=== PATIENT | male | born 1980 | race Caucasian/White ===

== ENCOUNTER 2016-10-11 22:42 | Emergency (ER) | payer SELFPAY ==
--- NOTE | 2016-10-11 23:11 | ED.PDOC ---
History of Present Illness - General Chief Complaint: Eye Problems Stated Complaint: wasp sting right lid Time Seen by Provider: 10/11/16 23:05 Source: patient Exam Limitations: no limitations - History of Present Illness Initial Comments: Christiano Engle 36 y/o male stated that wasp stung him right eyelid while he was loading a boat on hi trailer hitch.No SOB no chest pains vision blurry due to lid swelling. Timing/Duration: other - 3 hours ago Severity: mild Location: face - eyelid right Improving Factors: cold therapy Worsening Factors: nothing Associated Symptoms: denies symptoms Allergies/Adverse Reactions: Allergies NO KNOWN ALLERGY Allergy (Verified 08/29/14 18:58) Home Medications: Ambulatory Orders Sulfa/Trimeth 800/160 (Ds) Tab [Bactrim DS Tab] 1 ea PO BID #14 tab 08/29/14 Tramadol HCl 50 mg PO Q6HRS PRN #12 tab 08/29/14 Acetaminophen W/ Codeine [Tylenol W/ CODEINE #3] 1 ea PO Q6H #30 02/20/15 Docusate Sodium [Colace Cap] 100 mg PO BID #30 cap 02/20/15 predniSONE 10 mg PO BID #10 tab 10/11/16 Review of Systems - Review of Systems Constitutional: States: no symptoms reported EENTM: States: see HPI Respiratory: States: no symptoms reported Cardiology: States: no symptoms reported Gastrointestinal/Abdominal: States: no symptoms reported Genitourinary: States: no symptoms reported Musculoskeletal: States: no symptoms reported Skin: States: no symptoms reported Neurological: States: no symptoms reported Endocrine: States: no symptoms reported Hematologic/Lymphatic: States: no symptoms reported Past Medical History (General) - Patient Medical History Hx Stroke: No Hx Congestive Heart Failure: No Hx Diabetes: No Hx MRSA: No - Vaccination History Hx Influenza Vaccination: No Hx Pneumococcal Vaccination: No - Social History Hx Tobacco Use: Yes Family Medical History - Family History Father Family History: No Known Living Status: Still Living Physical Exam - Physical Exam General Appearance: Alert, Frail Eyes, Ears, Nose, Throat Exam: PERRL/EOMI, normal ENT inspection, TMs normal, pharynx normal, other - upper and lower lid swelling able to open right eye eyeball normal Neck: non-tender, full range of motion, supple Cardiovascular/Chest: normal peripheral pulses, regular rate, rhythm, no murmur Respiratory: chest non-tender, lungs clear Gastrointestinal/Abdominal: normal bowel sounds, non tender, soft Back Exam: normal inspection Extremity: normal range of motion, non-tender, no calf tenderness Neurologic: no motor/sensory deficits, alert, oriented x 3 Skin Exam: warm/dry, normal color Skin Problem Location: other - eyelid right Skin Character: erythema, swelling Lymphatic: no adenopathy Departure - Departure Clinical Impression: Swelling of right eyelid Wasp sting Qualifiers: Encounter type: initial encounter Injury intent: accidental or unintentional Qualified Code(s): T63.461A - Toxic effect of venom of wasps, accidental ( unintentional), initial encounter Time of Disposition: 23:25 Disposition: Discharge to Home or Self Care Condition: Good Instructions: DI for Insect Bites and Stings, Insect Bites and Stings ( Alternative Therapy), How to Care for an Insect Bite or Sting Prescriptions: predniSONE 10 mg PO BID #10 tab Home Medications: Ambulatory Orders Sulfa/Trimeth 800/160 (Ds) Tab [Bactrim DS Tab] 1 ea PO BID #14 tab 08/29/14 Tramadol HCl 50 mg PO Q6HRS PRN #12 tab 08/29/14 Acetaminophen W/ Codeine [Tylenol W/ CODEINE #3] 1 ea PO Q6H #30 02/20/15 Docusate Sodium [Colace Cap] 100 mg PO BID #30 cap 02/20/15 predniSONE 10 mg PO BID #10 tab 10/11/16
[2016-10-11] MEDS ORDERED: predniSONE 10 MG TAB PO ONE (23:23)
[2016-10-11 23:39] VITALS: BP 124/73; TEMP 97.4; O2SAT 97
== END 2016-10-11 23:56 | disposition home or self-care (01) ==
LOC: ER 22:42
DX: T63.441A Toxic effect of venom of bees, accidental (unintentional), initial encounter (principal); Y92.9 Unspecified place or not applicable; Z79.899 Other long term (current) drug therapy; Z87.891 Personal history of nicotine dependence

== ENCOUNTER 2017-05-26 14:05 | Emergency (ER) | payer BC ==
--- NOTE | 2017-05-26 15:03 | ED.PDOC ---
History of Present Illness - General Stated Complaint: FEVER HEAD ACHE BODYACHE COUGH Time Seen by Provider: 05/26/17 15:01 Source: patient, family Additional Information: 37 YEAR OLD HEALTHY MALE BROUGHT HERE BY FAMILY FOR EVALUATION OF FEVER BODY ACHE HE WAS OUT IN THE COLD WORKING ON HIS TRUCK FOR 3 HOURS YESTERDAY - History of Present Illness Timing/Duration: 24 hours Severity: mild Improving Factors: nothing Worsening Factors: nothing Associated Symptoms: denies symptoms Allergies/Adverse Reactions: Allergies NO KNOWN ALLERGY Allergy (Verified 08/29/14 18:58) Home Medications: Ambulatory Orders Amoxicillin [Amoxil] 500 mg PO Q8HR #30 cap 05/26/17 Review of Systems - Review of Systems Constitutional: States: see HPI EENTM: States: no symptoms reported Respiratory: States: no symptoms reported Cardiology: States: no symptoms reported Gastrointestinal/Abdominal: States: no symptoms reported Genitourinary: States: no symptoms reported Musculoskeletal: States: no symptoms reported Skin: States: no symptoms reported Neurological: States: no symptoms reported Endocrine: States: no symptoms reported Hematologic/Lymphatic: States: no symptoms reported Past Medical History (General) - Patient Medical History Hx Stroke: No Hx Cardiac Disorders: No Hx Congestive Heart Failure: No Hx Hypertension: No Hx Diabetes: No Hx Cancer: No Hx Hepatitis C: No Hx MRSA: No - Vaccination History Hx Tetanus, Diphtheria Vaccination: No Hx Influenza Vaccination: No Hx Pneumococcal Vaccination: No - Social History Hx Tobacco Use: Yes Hx Chewing Tobacco Use: No Hx Alcohol Use: Yes Hx Substance Use: No Hx Substance Use Treatment: No Hx Depression: No Hx Physical Abuse: No Hx Emotional Abuse: No Hx Suspected Abuse: No Family Medical History - Family History Father Family History: No Known Living Status: Still Living Physical Exam - Physical Exam General Appearance: Alert, Comfortable Eye Exam: bilateral normal Ears, Nose, Throat: hearing grossly normal, normal ENT inspection, normal pharynx Neck: non-tender, full range of motion, supple Respiratory: chest non-tender, lungs clear, normal breath sounds, no respiratory distress Cardiovascular/Chest: normal peripheral pulses, regular rate, rhythm, no edema, no gallop, no JVD Peripheral Pulses: radial,right: 2+, radial,left: 2+, femoral,right: 2+, femoral ,left: 2+ Gastrointestinal/Abdominal: normal bowel sounds, non tender, soft, no organomegaly Back Exam: normal inspection, no CVA tenderness Neurologic: corrections corporal II-XII nml as tested, no motor/sensory deficits, alert, normal mood/affect Departure - Departure Clinical Impression: Acute pharyngitis Time of Disposition: 16:36 Disposition: Discharge to Home or Self Care Condition: Good Diet: resume usual diet Prescriptions: Amoxicillin [Amoxil] 500 mg PO Q8HR #30 cap Home Medications: Ambulatory Orders Amoxicillin [Amoxil] 500 mg PO Q8HR #30 cap 05/26/17
[2017-05-26 15:16] VITALS: BP 126/62; O2SAT 96
[2017-05-26] MEDS: AMPICILLIN & SULBACTAM SODIUM 1.5 GM VIAL IM ONE (16:44)
[2017-05-26] MEDS: PENICILLIN BENZATHINE 1.2 MU 1.2 MU/2 ML SYG IM ONE (16:52)
[2017-05-26 17:14] VITALS: TEMP 98.9
== END 2017-05-26 17:15 | disposition home or self-care (01) ==
LOC: ER 14:05
DX: J02.9 Acute pharyngitis, unspecified (principal)
CPT/HCPCS: 87804; 87880; J0561

== ENCOUNTER 2017-05-30 00:02 | Emergency (ER) | payer BC ==
--- NOTE | 2017-05-30 00:38 | ED.PDOC ---
History of Present Illness - General Chief Complaint: Cardiovascular Problem Stated Complaint: chest pain Time Seen by Provider: 05/30/17 00:32 Source: patient Exam Limitations: no limitations Additional Information: PT C/O PRIMARILY SOB ASSOCIATED WITH SOB AND OCC CP. - History of Present Illness Timing/Duration: other - PT HAS HAD LONG STANDING SX'S BUT WERE MUCH MORE FREQUENT TONIGHT Severity: moderate Improving Factors: nothing Worsening Factors: nothing Allergies/Adverse Reactions: Allergies NO KNOWN ALLERGY Allergy (Verified 05/30/17 00:54) Home Medications: Ambulatory Orders Amoxicillin [Amoxil] 500 mg PO Q8HR #30 cap 05/26/17 Review of Systems - Review of Systems Constitutional: Denies: chills, fever EENTM: States: no symptoms reported Respiratory: States: short of breath. Denies: cough, wheezing Cardiology: States: chest pain, palpitations, other - PT C/O BRIEF INTERMITTENT CP WHICH WAS SHARP AND ASSOCIATED WITH PALPITATIONS. Gastrointestinal/Abdominal: Denies: abdominal pain, nausea, vomiting Genitourinary: States: no symptoms reported Musculoskeletal: States: no symptoms reported Skin: States: no symptoms reported Neurological: Denies: weakness Endocrine: States: no symptoms reported Hematologic/Lymphatic: States: no symptoms reported Past Medical History (General) - Patient Medical History Hx Stroke: No Hx Cardiac Disorders: No Hx Congestive Heart Failure: No Hx Hypertension: No Hx Diabetes: No Hx Cancer: No Hx Hepatitis C: No Hx MRSA: No - Vaccination History Hx Tetanus, Diphtheria Vaccination: No Hx Influenza Vaccination: No Hx Pneumococcal Vaccination: No - Social History Hx Tobacco Use: Yes Hx Chewing Tobacco Use: No Hx Alcohol Use: Yes Hx Substance Use: No Hx Substance Use Treatment: No Hx Depression: No Hx Physical Abuse: No Hx Emotional Abuse: No Hx Suspected Abuse: No Family Medical History - Family History Father Family History: No Known Living Status: Still Living Hx Cardiac Disease: No Physical Exam - Physical Exam General Appearance: Alert, Anxious, No apparent distress Eye Exam: bilateral normal Ears, Nose, Throat: hearing grossly normal, normal ENT inspection, other - POOR DENTITION Neck: non-tender, full range of motion, supple Respiratory: lungs clear, normal breath sounds Cardiovascular/Chest: regular rate, rhythm, no murmur Gastrointestinal/Abdominal: normal bowel sounds, non tender, soft, no organomegaly Back Exam: normal inspection, no CVA tenderness Extremity: normal range of motion, non-tender, no calf tenderness Neurologic: alert, normal mood/affect Skin Exam: normal color, warm/dry Lymphatic: no adenopathy Progress - Progress Progress: 05/30/17 01:51 NO FURTHER SX'S VSS - EKG/XRAY/CT EKG: Sinus - RATE 85, NL AXIS, NL INTERVALS, , no ST T wave changes - NAIP, Unchanged from - 07/15/2013 XRAY: chest - VLAD Departure - Departure Clinical Impression: Intermittent palpitations Time of Disposition: 01:53 Disposition: Discharge to Home or Self Care Condition: Good Departure Forms: ED Discharge - Pt. Copy, Patient Portal Self Enrollment Instructions: DI for Chest Pain, DI for Palpitations Referrals: Yamil Lopez MD [Primary Care Provider] - 1-2 Weeks Home Medications: Ambulatory Orders Amoxicillin [Amoxil] 500 mg PO Q8HR #30 cap 05/26/17
--- NOTE | 2017-05-30 00:49 | RAD ---
EXAM: Two view chest. INDICATION: Chest pain. COMPARISON: Chest x-ray: 07/15/2013. FINDINGS: Cardiac silhouette: Unremarkable. Hayley: Unremarkable. Lobar consolidation: None. Pleural effusion: None. Pneumothorax: None. Other: None. Bones: Unremarkable. Other: None. IMPRESSION: 1. No acute cardiopulmonary process. Electronically signed by: Adam Henderson MD 05/30/2017 12:49 AM [facility] Workstation: [id number]
[2017-05-30 02:34] VITALS: BP 111/76; TEMP 97.7; O2SAT 95
== END 2017-05-30 02:20 | disposition home or self-care (01) ==
LOC: ER 00:02
DX: R00.2 Palpitations (principal); Z87.891 Personal history of nicotine dependence